=== PATIENT | male | born 1980 | race Caucasian/White ===

== ENCOUNTER 2018-08-29 13:03 | Emergency (ER) | payer OTHER, SELFPAY ==
--- NOTE | 2018-08-29 13:53 | ER ---
Nurse's Notes [facility] Name: Adonis Mcnally Jr Age: 38 yrs Sex: Male : 1980 Arrival Date: 08/29/2018 Time: 13:05 Bed 23 Private MD: Diagnosis: Dental caries;Dental root caries-extensive;Cutaneous abscess of head [any part, except face]-odontogenic abscess Presentation: 08/29 13:08 Presenting complaint: Patient states: Left upper tooth pain started yesterday and jl7 swelling happened over night. Transition of care: patient was not received from another setting of care. Onset of symptoms was August 28, 2018. Risk Assessment: Do you want to hurt yourself or someone else? Patient reports no desire to harm self or others. Initial Sepsis Screen: Does the patient meet any 2 criteria? No. Patient's initial sepsis screen is negative. Does the patient have a suspected source of infection? No. Patient's initial sepsis screen is negative. Care prior to arrival: None. 13:08 Method Of Arrival: Ambulatory [facility] 13:08 Acuity: JU 3 jl7 Triage Assessment: 13:11 General: Appears uncomfortable, ill, Behavior is calm, cooperative, appropriate for jl7 age. Pain: Complains of pain in gums and upper left lateral incisor Pain currently is 8 out of 10 on a pain scale. EENT: Reports pain in gums and upper left lateral incisor. Historical: - Allergies: 13:10 No Known Allergies; jl7 - Home Meds: 13:10 None [Active]; jl7 - PMHx: 13:10 None; jl7 - PSHx: 13:10 None; jl7 - Immunization history:: Adult Immunizations not up to date. - Social history:: Smoking status: Patient/guardian denies using tobacco. - Ebola Screening: : No symptoms or risks identified at this time. - Family history:: not pertinent. Screenin:20 Abuse screen: Denies threats or abuse. Denies injuries from another. Nutritional ed1 screening: No deficits noted. Tuberculosis screening: No symptoms or risk factors identified. Fall Risk None identified. Assessment: 13:20 General: Appears uncomfortable, Behavior is calm, cooperative. Pain: Complains of pain ed1 in face Pain radiates to chest and neck Pain currently is 8 out of 10 on a pain scale. Quality of pain is described as sharp, throbbing, Pain began 2-3 days ago. Is continuous, Current management is with Tylenol, Advil, is partially effective. Neuro: Level of Consciousness is awake, alert, obeys commands, Oriented to person, place, time, situation. Cardiovascular: Denies chest pain, Heart tones S1 S2 present. Respiratory: Airway is patent Respiratory effort is even, unlabored, Respiratory pattern is regular, symmetrical, Breath sounds are clear bilaterally. GI: Reports nausea, Patient currently denies diarrhea, vomiting. : No signs and/or symptoms were reported regarding the genitourinary system. EENT: Oral mucosa is moist. Poor dentition noted. Derm: Skin is pink, warm \T\ dry. Musculoskeletal: Circulation, motion, and sensation intact. Capillary refill < 3 seconds, in bilateral fingers. Swelling present in left cheek and left jaw. 13:29 Reassessment: I agree with previous assessment. hb 14:38 Reassessment: Patient appears in no apparent distress at this time. Patient and/or ed1 family updated on plan of care and expected duration. Pain level reassessed. Patient is alert, oriented x 3, equal unlabored respirations, skin warm/dry/pink. Report called to HEAVEN Zuñiga at [facility] ER, triage. Patient states feeling better. Patient states symptoms have improved. 16:03 Reassessment: Patient appears in no apparent distress at this time. Patient and/or ed1 family updated on plan of care and expected duration. Pain level reassessed. Patient is alert, oriented x 3, equal unlabored respirations, skin warm/dry/pink. Patient states feeling better. Patient states symptoms have improved. Vital Signs: 13:10 BP 148 / 96; Pulse 66; Resp 16 S; Temp 97.7(O); Pulse Ox 99% on R/A; Weight 120.2 kg jl7 (R); Height 5 ft. 8 in. (172.72 cm) (R); Pain 8/10; 14:39 BP 124 / 97; Pulse 61; Resp 20; Pulse Ox 96% on R/A; Pain 5/10; ed1 16:03 BP 126 / 84; Pulse 73; Resp 17; Temp 98.9(O); Pulse Ox 99% on R/A; Pain 4/10; ed1 13:10 Body Mass Index 40.29 (120.20 kg, 172.72 cm) jl7 ED Course: 13:05 Patient arrived in ED. rg4 13:10 Triage completed. jl7 13:10 Arm band placed on right wrist. jl7 13:20 Patient has correct armband on for positive identification. Placed in gown. Bed in low ed1 position. Call light in reach. Pulse ox on. NIBP on. 13:24 Addy Wiggins MD is Attending Physician. [facility] 13:30 Ruba Zhang LVN is Primary Nurse. ed1 14:07 Initial lab(s) drawn, by ED staff, sent to lab. Inserted saline lock: 20 gauge in left ed1 antecubital area, using aseptic technique. Blood collected. 14:[address] Scan. ed1 16:03 No provider procedures requiring assistance completed. Patient transferred, IV remains ed1 in place. intact, No redness/swelling at site. Administered Medications: 14:03 Drug: NS 0.9% 1000 ml Route: IV; Rate: 1 bolus; Site: left antecubital; ed1 16:02 Follow up: IV Status: Completed infusion; IV Intake: 1000ml ed1 14:03 Drug: Clindamycin 900 mg Route: IVPB; Infused Over: 30 mins; Site: left antecubital; ed1 14:31 Follow up: Response: No adverse reaction; IV Status: Completed infusion; IV Intake: [id number] 14:05 Drug: TORadol 30 mg Route: IVP; Site: left antecubital; iw 15:06 Follow up: Response: No adverse reaction; Pain is decreased ed1 14:05 Drug: morphine 4 mg Route: IVP; Site: left antecubital; iw 15:06 Follow up: Response: No adverse reaction; Pain is decreased ed1 14:05 Drug: Zofran 4 mg Route: IVP; Site: left antecubital; iw 15:06 Follow up: Response: No adverse reaction ed1 15:06 Drug: Rocephin - (cefTRIAXone) 1 grams Route: IVPB; Infused Over: 30 mins; Site: left ed1 antecubital; 16:02 Follow up: Response: No adverse reaction; IV Status: Completed infusion ed1 15:06 Drug: NS 0.9% with KCl 20 mEq/L 1000 ml Route: IV; Rate: 125 ml/hr; Site: left ed1 antecubital; 16:02 Follow up: IV Status: Infusion continued upon transfer ed1 Intake: 14:31 IV: 50ml; Total: 50ml. ed1 16:02 IV: 1000ml; Total: 1050ml. ed1 Outcome: 13:53 ER care complete, transfer ordered by . nirmala 16:03 Transferred by ground EMS to other acute care facility, Transfer form completed. X-rays ed1 sent w/ patient. Note: Report called to HEAVEN Zuñiga at [facility], triage 16:03 Condition: stable 16:03 Discharge instructions given to patient, Instructed on the need for transfer, Demonstrated understanding of instructions. 16:06 Patient left the ED. ed1 Signatures: Addy Wiggins MD MD cha Williams, Irene RN Ruba Rock, TRAVEL ACCOMMODATION INSPECTOR TRAVEL ACCOMMODATION INSPECTOR ed1 Es Blackwell, RN Adri Fish rg4 Melanie Mendieta RN RN jl7
--- NOTE | 2018-08-29 13:54 | EDPHYS ---
Physician Documentation [facility] Name: Adonis Mcnally Jr Age: 38 yrs Sex: Male : 1980 Arrival Date: 08/29/2018 Time: 13:05 Bed 23 Private MD: ED Physician Addy Wiggins HPI: 08/29 13:47 This 38 yrs old Male presents to ER via Ambulatory with complaints of nirmala Toothache, Facial Swelling. 13:47 The patient presents with pain, redness, swelling. The problem is located in the left nirmala cheek and mouth. Onset: The symptoms/episode began/occurred 5 day(s) ago. Duration: The symptoms are continuous, and are steadily getting worse. Modifying factors: The symptoms are alleviated by nothing, the symptoms are aggravated by chewing, food. Associated signs and symptoms: The patient has no apparent associated signs or symptoms. Severity of symptoms: At their worst the symptoms were moderate, in the emergency department the symptoms are unchanged. The patient has not experienced similar symptoms in the past. Historical: - Allergies: 13:10 No Known Allergies; jl7 - Home Meds: 13:10 None [Active]; jl7 - PMHx: 13:10 None; jl7 - PSHx: 13:10 None; jl7 - Immunization history:: Adult Immunizations not up to date. - Social history:: Smoking status: Patient/guardian denies using tobacco. - Ebola Screening: : No symptoms or risks identified at this time. - Family history:: not pertinent. ROS: 13:47 Constitutional: Negative for fever, chills, and weight loss, Eyes: Negative for injury, nirmala pain, redness, and discharge, Neck: Negative for injury, pain, and swelling, Cardiovascular: Negative for chest pain, palpitations, and edema, Respiratory: Negative for shortness of breath, cough, wheezing, and pleuritic chest pain, Abdomen/GI: Negative for abdominal pain, nausea, vomiting, diarrhea, and constipation, Back: Negative for injury and pain, : Negative for injury, bleeding, discharge, and swelling, MS/Extremity: Negative for injury and deformity, Skin: Negative for injury, rash, and discoloration, Neuro: Negative for headache, weakness, numbness, tingling, and seizure. 13:47 ENT: Positive for dental pain, of the left cheek and mouth. Exam: 13:47 Constitutional: This is a well developed, well nourished patient who is awake, alert, nirmala and in no acute distress. Eyes: Pupils equal round and reactive to light, extra-ocular motions intact. Lids and lashes normal. Conjunctiva and sclera are non-icteric and not injected. Cornea within normal limits. Periorbital areas with no swelling, redness, or edema. Neck: Trachea midline, no thyromegaly or masses palpated, and no cervical lymphadenopathy. Supple, full range of motion without nuchal rigidity, or vertebral point tenderness. No Meningismus. Chest/axilla: Normal chest wall appearance and motion. Nontender with no deformity. No lesions are appreciated. Cardiovascular: Regular rate and rhythm with a normal S1 and S2. No gallops, murmurs, or rubs. Normal PMI, no JVD. No pulse deficits. Respiratory: Lungs have equal breath sounds bilaterally, clear to auscultation and percussion. No rales, rhonchi or wheezes noted. No increased work of breathing, no retractions or nasal flaring. Abdomen/GI: Soft, non-tender, with normal bowel sounds. No distension or tympany. No guarding or rebound. No evidence of tenderness throughout. Back: No spinal tenderness. No costovertebral tenderness. Full range of motion. Male : Normal genitalia with no discharge or lesions. Skin: Warm, dry with normal turgor. Normal color with no rashes, no lesions, and no evidence of cellulitis. 13:47 Head/face: Noted is erythema, swelling, tenderness, that is moderate, of the left cheek and mouth. Vital Signs: 13:10 BP 148 / 96; Pulse 66; Resp 16 S; Temp 97.7(O); Pulse Ox 99% on R/A; Weight 120.2 kg jl7 (R); Height 5 ft. 8 in. (172.72 cm) (R); Pain 8/10; 14:39 BP 124 / 97; Pulse 61; Resp 20; Pulse Ox 96% on R/A; Pain 5/10; ed1 16:03 BP 126 / 84; Pulse 73; Resp 17; Temp 98.9(O); Pulse Ox 99% on R/A; Pain 4/10; ed1 13:10 Body Mass Index 40.29 (120.20 kg, 172.72 cm) jl7 MDM: 13:24 Patient medically screened. [facility] 13:50 Data reviewed: vital signs, nurses notes, lab test result(s), radiologic studies. [facility] 08/29 13:47 Order name: CBC with Diff [facility] 08/29 13:47 Order name: Comprehensive Metabolic Panel [facility] 08/29 13:47 Order name: CT Facial Bones W/ Con \T\ Mpr [facility] 08/29 14:20 Order name: CBC with Automated Diff; Complete Time: 14:52 EDMS 08/29 14:22 Order name: Comprehensive Metabolic Panel; Complete Time: 14:52 EDMS 08/29 14:36 Order name: CBC Smear Scan; Complete Time: 14:52 EDMS 08/29 15:07 Order name: CT EDMS Administered Medications: 14:03 Drug: NS 0.9% 1000 ml Route: IV; Rate: 1 bolus; Site: left antecubital; ed1 16:02 Follow up: IV Status: Completed infusion; IV Intake: 1000ml ed1 14:03 Drug: Clindamycin 900 mg Route: IVPB; Infused Over: 30 mins; Site: left antecubital; ed1 14:31 Follow up: Response: No adverse reaction; IV Status: Completed infusion; IV Intake: [id number] 14:05 Drug: TORadol 30 mg Route: IVP; Site: left antecubital; iw 15:06 Follow up: Response: No adverse reaction; Pain is decreased ed1 14:05 Drug: morphine 4 mg Route: IVP; Site: left antecubital; iw 15:06 Follow up: Response: No adverse reaction; Pain is decreased ed1 14:05 Drug: Zofran 4 mg Route: IVP; Site: left antecubital; iw 15:06 Follow up: Response: No adverse reaction ed1 15:06 Drug: Rocephin - (cefTRIAXone) 1 grams Route: IVPB; Infused Over: 30 mins; Site: left ed1 antecubital; 16:02 Follow up: Response: No adverse reaction; IV Status: Completed infusion ed1 15:06 Drug: NS 0.9% with KCl 20 mEq/L 1000 ml Route: IV; Rate: 125 ml/hr; Site: left ed1 antecubital; 16:02 Follow up: IV Status: Infusion continued upon transfer ed1 Disposition: 08/29/18 13:53 Transfer ordered to [facility]. Diagnosis are Dental caries, Dental root caries - extensive, Cutaneous abscess of head [any part, except face] - odontogenic abscess. - Reason for transfer: Higher level of care. - Accepting physician is to [facility]. - Condition is Fair. - Problem is new. - Symptoms have improved. Signatures: Dispatcher [employer] EDMS Addy Wiggins MD MD cha Williams, Irene, RN RN Ruba Millard LVN CLAY ROASTER ed1 Melanie Mendieta RN RN jl7 Corrections: (The following items were deleted from the chart) 16:06 13:53 08/29/2018 13:53 Transfer ordered to [facility]. Diagnosis is Dental ed1 caries; Dental root caries - extensive; Cutaneous abscess of head [any part, except face] - odontogenic abscess. Reason for transfer: Higher level of care. Accepting physician is to [facility]. Condition is Fair. Problem is new. Symptoms have improved. nirmala
[2018-08-29] MEDS ORDERED: CLINDAMYCIN 900MG/D5W 900 MG/50 ML IVPB IV ONE (13:59)
[2018-08-29] MEDS ORDERED: MORPHINE 4 MG/ML SYR ONE (13:59)
[2018-08-29] MEDS ORDERED: KETOROLAC 30 MG/ML INJ ONE (13:59)
[2018-08-29] MEDS ORDERED: ONDANSETRON 4 MG/2 ML VIAL ONE (13:59)
[2018-08-29] MEDS ORDERED: NA CHLORIDE 0.9% 1,000 ML ONE (13:59)
[2018-08-29 14:09] LABS: Absolute Lymphocytes (CBC) 1.3 K/uL (0.7-4.9); Absolute Monocytes 2.2 K/uL (0.1-1.3); Absolute Neutrophil 17.3 K/uL (1.8-8.0); Basophils % 0.3 % (0-1.3); Eosinophils % 0.1 % (0-4.4); Hematocrit 45.8 % (39.6-49.0); Lymphocytes % 6.3 % (15.3-44.8); MCH 31.4 pg (27.0-35.0); MCV 91.1 fL (80-100); MPV 9.8 fL (7.6-11.3); Monocytes % 10.6 % (3.3-12.3); RBC Red Blood Cell Count 5.02 M/uL (4.33-5.43)
[2018-08-29 14:21] LABS: Albumin 4.1 g/dL (3.4-5.0); Potassium 3.4 mmol/L (3.5-5.1); Protein, Total 8.1 g/dL (6.4-8.2)
[2018-08-29 14:36] LABS: Blood Morphology Comment NOT SEEN (NOT SEEN); Platelet Estimate ADEQ; Platelets, Giant NOTED; Urine White Blood Cell Casts OK
--- NOTE | 2018-08-29 15:06 | RAD REPORT ---
EXAM DESCRIPTION: CTFacial Bones W Con Mpr08/29/2018 2:51 pm CLINICAL HISTORY: Facial pain/fever COMPARISON: 2010 TECHNIQUE: Computed axial tomography of the sinuses were obtained with coronal and sagittal reconstr uction. All CT scans are performed using dose optimization technique as appropriate and may include automated exposure control or mA/KV adjustment according to patient size. FINDINGS: A large lucency is present within a central left maxillary tooth eroding the maxillary bon e. A 2.3 centimeter fluid collection is present within this region extending into the adjacent soft t issue compatible with an abscess. An 11 millimeter right. Maxillary tooth abscess is present. Fluid within the sinuses is not noted. The globes are intact. IMPRESSION: A 23 millimeter left maxillary dana tooth abscess eroding the left maxillary bone extend ing into the adjacent soft tissues
[2018-08-29] MEDS ORDERED: NS KCL 20MEQ 1,000 ML IV ONE (15:07)
[2018-08-29] MEDS ORDERED: CEFTRIAXONE/SWI 1gm 1 GM/10 ML SYR ONE (15:07)
== END 2018-08-29 16:06 | disposition short-term general hospital (02) ==
LOC: ER 13:03
DX: K04.7 Periapical abscess without sinus (principal); K02.7 Dental root caries; K02.9 Dental caries, unspecified
CPT/HCPCS: 36415; 70487; 76377; 80053; 85025; 96361; 96365; 96367; 96375; 99285; J0696; J2405; J7030; Q9967

== ENCOUNTER 2021-05-22 20:17 | Emergency (ER) | payer SELFPAY ==
--- OUTSIDE RECORDS SUMMARY | 2021-05-22 20:21 | XMS REPORT | Continuity of Care Document ---
:[address] [facility] t Address [address] [place] [address] Care Team Providers Name Role Phone Unavailable Unavailable Unavailable Problems Condition Condition Condition Status Onset Resolution Last Treating Co mments Source Name Details Category Date Date Treatment Clinician Date Dental Dental Disease Active 2017-10 [place] abscess abscess 10-29 Health 00:00: 00 Caries Caries Disease Active [place] involving involving [facility] multiple multiple surfaces surfaces of tooth of tooth Allergies, Adverse Reactions, Alerts This patient has no known allergies or adverse reactions. Social History Social Habit Start Date Stop Date Quantity Comments Source Sex Assigned At [facility] Tobacco use and 2018-08-29 2018-08-29 Never used [facility] exposure 00:00:00 00:00:00 Alcohol intake 2018-08-29 2018-08-29 Current drinker [facility] 00:00:00 00:00:00 of alcohol (finding) Smoking Status Start Date Stop Date Source Never smoker [facility] Medications Ordered Filled Start Stop Current Ordering Indication Dosage Frequency Signature Comments Components Source Medication Medication Date Date Medication? Clinician (SIG) Name Name acetaminoph 2017-10 Yes Dental 1{tbl} Take 1 [place] en-codeine 1-20 abscess tablet by [facility] (TYLENOL/CO 00:00: mouth DEINE #3) 00 every 4 300-30 mg hours as per tablet needed for Pain. Procedures This patient has no known procedures. Plan of Care Planned Activity Planned Date Details Comments Source Future Scheduled Test 2021-07-10 00:00:00 IMM Influenza [facility] Seasonal Jul to December (>/= 19 yrs) [code = IMM Influenza Seasonal Jul to December (>/= 19 yrs)] Future Scheduled Test 1993 00:00:00 COVID-19 Vaccine (1) [facility] [code = COVID-19 Vaccine (1)] Encounters Start End Encounter Admission Attending Care Care Encounter Source Date/Time Date/Time Type Type Clinicians Facility Department ID 2018-08-29 2018-08-29 Emergency [facility] [id number] [place] 21:24:33 21:24:33 Health 2018-08-29 2018-08-29 Emergency [facility] [id number] [place] 18:17:36 18:17:36 Health 2018-08-29 2018-08-29 Emergency [facility] [id number] [address] [place] [address] 17:14:31 17:14:31 Health Results This patient has no known results.
--- NOTE | 2021-05-23 01:39 | EDPHYS ---
Physician Documentation [facility] Name: Adonis Mcnally Jr Age: 41 yrs Sex: Male : 1980 Arrival Date: 05/22/2021 Time: 20:41 Bed DIS2 Private MD: ED Physician Ambrosio Rodriges HPI: 05/23 01:15 This 41 yrs old Male presents to ER via Ambulatory with complaints of Fever, cp Sinus Congestion, Cough, Runny Nose. 01:15 The patient or guardian reports cough, that is intermittent, nasal congestion, nasal cp drainage. Onset: The symptoms/episode began/occurred 3 day(s) ago. Associated signs and symptoms: Pertinent positives: fever, Pertinent negatives: diarrhea, ear ache, sore throat, vomiting. Patient reports recently tested positive for COVID-19. Historical: - Allergies: 05/22 21:52 No Known Allergies; em - PMHx: 21:52 Hypertensive disorder; "heart problems"; em - PSHx: 21:52 None; em - Immunization history:: Adult Immunizations up to date. - Social history:: Smoking status: Patient reports the use of cigarette tobacco products, smokes two packs cigarettes per day. ROS: 05/23 01:20 Constitutional: Negative for body aches, chills, fever, poor PO intake. cp 01:20 Eyes: Negative for injury, pain, redness, and discharge. cp 01:20 ENT: Positive for rhinorrhea, sinus congestion, Negative for drainage from ear(s), ear pain, sore throat, difficulty swallowing, difficulty handling secretions. 01:20 Neck: Negative for pain with movement, pain at rest, stiffness. 01:20 Cardiovascular: Negative for chest pain. 01:20 Respiratory: Positive for cough, with no reported sputum, Negative for shortness of breath, wheezing. 01:20 Skin: Negative for rash. 01:20 Neuro: Negative for altered mental status, headache, weakness. 01:20 All other systems are negative. Exam: 01:25 Constitutional: The patient appears in no acute distress, alert, awake, non-toxic, well cp developed, well nourished. 01:25 Head/Face: Normocephalic, atraumatic. cp 01:25 Eyes: Periorbital structures: appear normal, Conjunctiva: normal, no exudate, no injection, Sclera: no appreciated abnormality, Lids and lashes: appear normal, bilaterally. 01:25 ENT: External ear(s): are unremarkable, Ear canal(s): are normal, clear, TM's: dullness, bilaterally, Nose: is normal, Mouth: Lips: moist, Oral mucosa: pink and intact, moist, Posterior pharynx: Airway: no evidence of obstruction, patent, Tonsils: are normal in appearance, swelling, is not appreciated, erythema, that is mild, exudate, is not appreciated. 01:25 Neck: ROM/movement: Meningeal signs: are not present, nuchal rigidity, is not appreciated, Lymph nodes: no appreciated lymphadenopathy. 01:25 Chest/axilla: Inspection: normal. 01:25 Cardiovascular: Rate: normal, Rhythm: regular. 01:25 Respiratory: the patient does not display signs of respiratory distress, Respirations: normal, no use of accessory muscles, no retractions, labored breathing, is not present, Breath sounds: are clear throughout, no decreased breath sounds, no stridor, no wheezing. Vital Signs: 05/22 21:52 BP 133 / 99; Pulse 89; Resp 20; Temp 98.7; Pulse Ox 99% on R/A; em 05/23 01:57 BP 137 / 85; Pulse 54; Resp 16 S; Temp 98(O); Pulse Ox 98% on R/A; bb MDM: 01:37 Patient medically screened. cp 01:38 Differential Diagnosis: Bronchitis Influenza Sinusitis Pharyngitis Viral Syndrome cp Pneumonia Other COVID-19. 01:38 Data reviewed: vital signs, nurses notes, lab test result(s). Counseling: I had a cp detailed discussion with the patient and/or guardian regarding: the historical points, exam findings, and any diagnostic results supporting the discharge/admit diagnosis, lab results, to return to the emergency department if symptoms worsen or persist or if there are any questions or concerns that arise at home. ED course: VSS. Discussed negative COVID-19 results. Patient appears stable and non-toxic, will discharge to home for continued monitoring and to quarantine with . 05/22 21:58 Order name: COVID-19 : Document "Date of Symptom Onset" if Symptomatic. em 05/22 22:56 Order name: SARS-COV-2 RT PCR; Complete Time: 01:38 EDMS Administered Medications: No medications were administered Disposition Summary: 05/23/21 01:38 Discharge Ordered Location: Home cp Problem: new cp Symptoms: are unchanged cp Condition: Stable cp Diagnosis - Acute upper respiratory infection, unspecified cp Followup: cp - With: Private Physician - When: 2 - 3 days - Reason: Worsening of condition Discharge Instructions: - Discharge Summary Sheet cp - Upper Respiratory Infection, Adult cp - COVID-19: What Your Test Results Mean - [facility] cp - Frequently Asked Questions About COVID-19 Vaccination - [facility] cp - Viral Respiratory Infection cp - Form - Excuse from Work, School, or Physical Activity cp - COVID-19: Quarantine vs. Isolation - [facility] cp Forms: - Medication Reconciliation Form cp - Thank You Letter cp - Antibiotic Education cp - Prescription Opioid Use cp Prescriptions: - Tessalon Perles 100 mg Oral Capsule - take 2 capsule by ORAL route every 8 hours As needed; 20 capsule; Refills: 0, cp Product Selection Permitted Addendum: 05/24/2021 06:46 Co-signature as Attending Physician, Ambrosio Rodriges MD. m Signatures: Dispatcher [employer] EDMS Clark Link RN RN Addy Ashby PA PA cp Ambrosio Rodriges MD MD [email or web address] Corrections: (The following items were deleted from the chart) 05/22 22:05 21:58 CORONAVIRUS ordered. EDGA EDMS
--- NOTE | 2021-05-23 01:39 | ER ---
Nurse's Notes [facility] Name: Adonis Mcnally Jr Age: 41 yrs Sex: Male : 1980 Arrival Date: 05/22/2021 Time: 20:41 Bed DIS2 Private MD: Diagnosis: Acute upper respiratory infection, unspecified Presentation: 05/22 21:52 Onset of symptoms was May 19, 2021. em 21:53 Chief complaint: Patient states: runny nose, congestion, fever for 3 days, tested em positive for covid. Coronavirus screen: congestion, fever, Client presents with at least one sign or symptom that may indicate coronavirus-19. Standard/surgical mask placed on the client. Provider contacted for isolation considerations. Ebola Screen: Patient negative for fever greater than or equal to 101.5 degrees Fahrenheit, and additional compatible Ebola Virus Disease symptoms Patient denies exposure to infectious person. Patient denies travel to an Ebola-affected area in the 21 days before illness onset. No symptoms or risks identified at this time. Initial Sepsis Screen: Does the patient meet any 2 criteria? No. Patient's initial sepsis screen is negative. Does the patient have a suspected source of infection? No. Patient's initial sepsis screen is negative. Risk Assessment: Do you want to hurt yourself or someone else? Patient reports no desire to harm self or others. 21:53 Method Of Arrival: Ambulatory em 21:53 Acuity: JU 4 em Triage Assessment: 21:51 General: Appears in no apparent distress. comfortable, Behavior is calm, cooperative, em appropriate for age, Denies fever. Pain: Denies pain. Neuro: Level of Consciousness is awake, alert, obeys commands, Oriented to person, place, time, situation. Cardiovascular: Capillary refill < 3 seconds Patient's skin is warm and dry. Respiratory: Airway is patent Respiratory effort is even, unlabored, Respiratory pattern is regular, symmetrical. Derm: Skin is intact, is healthy with good turgor, Skin is pink, warm \\T\\ dry. Musculoskeletal: Capillary refill < 3 seconds, Range of motion: intact in all extremities. Historical: - Allergies: 21:52 No Known Allergies; em - PMHx: 21:52 Hypertensive disorder; "heart problems"; em - PSHx: 21:52 None; em - Immunization history:: Adult Immunizations up to date. - Social history:: Smoking status: Patient reports the use of cigarette tobacco products, smokes two packs cigarettes per day. Screenin:51 Abuse screen: Denies threats or abuse. Nutritional screening: No deficits noted. em Tuberculosis screening: No symptoms or risk factors identified. Fall Risk None identified. Assessment: 21:52 Reassessment: see triage note. em Vital Signs: 21:52 BP 133 / 99; Pulse 89; Resp 20; Temp 98.7; Pulse Ox 99% on R/A; em 05/23 01:57 BP 137 / 85; Pulse 54; Resp 16 S; Temp 98(O); Pulse Ox 98% on R/A; bb ED Course: 05/22 20:41 Patient arrived in ED. cf2 21:51 Patient has correct armband on for positive identification. em 21:51 Arm band placed on. em 21:51 No provider procedures requiring assistance completed. Patient admitted, IV remains in em place. 21:54 Triage completed. em 05/23 01:32 Addy Perez PA is PHCP. cp 01:32 Ambrosio Rodriges MD is Attending Physician. cp Administered Medications: No medications were administered Outcome: 01:38 Discharge ordered by MD. cp 01:58 Discharged to home ambulatory. bb 01:58 Condition: stable 01:58 Discharge instructions given to patient, Instructed on discharge instructions, follow up and referral plans. medication usage, Demonstrated understanding of instructions, follow-up care, medications, Prescriptions given X 1. 01:58 Patient left the ED. bb Signatures: Clark Link RN RN Andree Hernandez RN RN bb Addy Perez PA PA cp Frazier, Celesta cf2
[2021-05-23 02:25] VITALS: BP 137/85; TEMP 98; O2SAT 98
== END 2021-05-23 01:58 | disposition home or self-care (01) ==
LOC: ER 20:17
DX: J06.9 Acute upper respiratory infection, unspecified (principal); Z20.822 Contact with and (suspected) exposure to COVID-19; F17.210 Nicotine dependence, cigarettes, uncomplicated; I10 Essential (primary) hypertension
CPT/HCPCS: 99282; U0003

== ENCOUNTER 2021-12-01 07:43 | Emergency (ER) | payer SELFPAY ==
[2021-12-01 08:19] LABS: Urine Blood Negative (Negative); Urine Glucose Negative (Negative); Urine Protein 1+ (Negative); Urine Specific Gravity >=1.030 (1.005-1.030); Urine pH 5.5 (5.0-7.0)
[2021-12-01 08:32] LABS: Absolute Lymphocytes (CBC) 1.6 K/uL (0.7-4.9); Hematocrit 46.5 % (39.6-49.0); Lymphocytes % 16.6 % (15.3-44.8); RBC Red Blood Cell Count 5.14 M/uL (4.33-5.43)
[2021-12-01 08:41] LABS: Urine Bacteria 20-50 /HPF (NONE SEEN); Urine Mucus 2+ /HPF (NONE SEEN); Urine RBC NONE SEEN /HPF (NONE SEEN)
--- NOTE | 2021-12-01 08:47 | RAD REPORT ---
EXAM DESCRIPTION: CT - Stone Protocol - 12/01/2021 8:32 am CLINICAL HISTORY: Flank pain. FLANK PAIN COMPARISON: No comparisons TECHNIQUE: Axial images were obtained without oral or IV contrast. Lack of contrast limits solid org an and vascular assessment. The [id number] spans the entirety of the system partially obscuring uppermost abdomen and lung bases. Coronal reformatted images were obtained and reviewed. All CT scans are performed using dose optimization technique as appropriate and may include automated exposure control or mA/KV adjustment according to patient size. FINDINGS: The lower lung willoughby are clear. Imaged portions of the liver and spleen show no suspicious findings on non-contrast imaging. The panc reas and adrenal glands are normal. No pathologic lymphadenopathy in the abdomen or pelvis. Punctate calculi are seen in both kidneys without hydronephrosis. No bowel obstruction, free air, free fluid or abscess. Normal appendix noted. Mild posterior disc bulging lower lumbar spine. IMPRESSION: Punctate calculi in both kidneys without hydronephrosis.
[2021-12-01 08:50] LABS: Albumin 3.7 g/dL (3.4-5.0); Bilirubin Direct 0.2 mg/dL (0-0.2); Bilirubin Total 0.6 mg/dL (0.2-1.0); Potassium 3.7 mmol/L (3.5-5.1); Protein, Total 7.3 g/dL (6.4-8.2)
--- NOTE | 2021-12-01 09:25 | EDPHYS ---
Physician Documentation [facility] Name: Adonis Mcnally Jr Age: 41 yrs Sex: Male : 1980 Arrival Date: 12/01/2021 Time: 07:44 Bed 12 Private MD: ED Physician Bong Coello HPI: 12/01 08:06 This 41 yrs old Male presents to ER via Ambulatory with complaints of Constipation, kb Back Pain. 08:06 The patient complains of pain in the right flank. The pain does not radiate. Onset: The kb symptoms/episode began/occurred 4 day(s) ago. Modifying factors: The symptoms are alleviated by nothing. the symptoms are aggravated by nothing. Associated signs and symptoms: The patient has no apparent associated signs or symptoms. Severity of pain: At its worst the pain was moderate in the emergency department the pain is unchanged. The patient has not experienced similar symptoms in the past. The patient has not recently seen a physician. Pt reports right flank pain since Tuesday that has been getting progressively worse. Reports constipation as well. Historical: - Allergies: 07:53 No Known Allergies; ap3 - Home Meds: 07:53 None [Active]; ap3 - PMHx: 07:53 Hypertensive disorder; "heart problems"; ap3 - Immunization history:: Client reports having NOT received the Covid vaccine. Flu vaccine is not up to date. - Social history:: Smoking status: Patient reports the use of cigarette tobacco products, smokes one pack cigarettes per day. Patient uses street drugs, marijuana. ROS: 08:06 Constitutional: Negative for fever, chills, and weight loss. kb 08:06 Back: Positive for flank pain, on the right. 08:06 All other systems are negative. 08:06 Abdomen/GI: Positive for constipation. kb Exam: 08:05 Constitutional: This is a well developed, well nourished patient who is awake, alert, kb and in no acute distress. Head/Face: Normocephalic, atraumatic. ENT: Moist Mucous membranes Cardiovascular: Regular rate and rhythm with a normal S1 and S2. No gallops, murmurs, or rubs. No pulse deficits. Respiratory: Respirations even and unlabored. No increased work of breathing. Talking in full sentences Abdomen/GI: Soft, non-tender. No distention Skin: Warm, dry with normal turgor. Normal color. MS/ Extremity: Pulses equal, no cyanosis. Neurovascular intact. Full, normal range of motion. Neuro: Awake and alert, GCS 15, oriented to person, place, time, and situation. Moves all extremities. Normal gait. Psych: Awake, alert, with orientation to person, place and time. Behavior, mood, and affect are within normal limits. 08:05 Back: CVA tenderness, that is moderate, is noted on the right. Vital Signs: 07:51 BP 119 / 79; Pulse 102; Resp 17; Temp 98.4; Pulse Ox 100% ; Weight 92.08 kg; Height 5 ap3 ft. 8 in. (172.72 cm); Pain 8/10; 08:46 BP 117 / 65; Pulse 68; Resp 15; Pulse Ox 98% ; Pain 8/10; eo2 09:37 BP 114 / 71; Pulse 70; Resp 15; Pulse Ox 96% ; Pain 4/10; eo2 07:51 Body Mass Index 30.87 (92.08 kg, 172.72 cm) ap3 MDM: 07:58 Patient medically screened. kb 08:05 Data reviewed: vital signs, nurses notes. Data interpreted: Pulse oximetry: on room air kb is 100 %. Interpretation: normal. 09:24 Counseling: I had a detailed discussion with the patient and/or guardian regarding: the kb historical points, exam findings, and any diagnostic results supporting the discharge/admit diagnosis, lab results, radiology results, the need for outpatient follow up, a family practitioner, to return to the emergency department if symptoms worsen or persist or if there are any questions or concerns that arise at home. 12/01 07:58 Order name: Basic Metabolic Panel; Complete Time: 08:55 kb 12/01 07:58 Order name: CBC with Diff; Complete Time: 08:47 kb 12/01 07:58 Order name: Hepatic Function; Complete Time: 08:55 kb 12/01 07:58 Order name: Lipase; Complete Time: 08:55 kb 12/01 08:14 Order name: Urine Microscopic Only; Complete Time: 08:47 kb 12/01 08:19 Order name: Urine Dipstick-Ancillary; Complete Time: 08:20 EDMS 12/01 07:58 Order name: IV Saline Lock; Complete Time: 08:22 kb 12/01 07:58 Order name: Labs collected and sent; Complete Time: 08:22 kb 12/01 08:04 Order name: CT Stone Protocol; Complete Time: 08:55 kb 12/01 08:14 Order name: Urine Dipstick-Ancillary (obtain specimen); Complete Time: 08:22 kb 12/01 08:43 Order name: Urine Culture EDMS Administered Medications: No medications were administered Disposition Summary: 12/01/21 09:25 Discharge Ordered Location: Home kb Condition: Stable kb Diagnosis - UTI/ Urinary tract infection, site not specified kb - Right flank pain kb Followup: kb - With: Emergency Department - When: As needed - Reason: Worsening of condition Followup: kb - With: Private Physician - When: 2 - 3 days - Reason: Recheck today's complaints, Continuance of care, Re-evaluation by your physician Discharge Instructions: - Discharge Summary Sheet kb - Urinary Tract Infection, Adult, [id number] kb - Flank Pain, Adult, [id number] kb Forms: - Medication Reconciliation Form kb - Thank You Letter kb - Antibiotic Education kb - Prescription Opioid Use kb Prescriptions: - Augmentin 875-125 mg Oral Tablet - take 1 tablet by ORAL route every 12 hours for 7 days; 14 tablet; Refills: 0, kb Product Selection Permitted Addendum: 12/03/2021 07:14 Co-signature as Attending Physician, Bong Coello MD I agree with the assessment and k dr plan of care. Signatures: Dispatcher [employer] EDMS Citlalli Mendoza, TALLOW PUMPER-C TALLOW PUMPER-CkBong Ordonez MD MD [facility] Gayathri Oropeza RN RN ap3 Corrections: (The following items were deleted from the chart) 12/01 08:11 07:59 Abdomen Pelvis W Con+CT.RAD.BRZ ordered. EDHI EDMS
--- NOTE | 2021-12-01 09:25 | ER ---
Nurse's Notes [facility] Name: Adonis Mcnally Jr Age: 41 yrs Sex: Male : 1980 Arrival Date: 12/01/2021 Time: 07:44 Bed 12 Private MD: Diagnosis: UTI/ Urinary tract infection, site not specified;Right flank pain Presentation: 12/01 07:51 Chief complaint: Patient states: he hasn't had a bowel movement since Tuesday morning, ap3 and he typically goes every morning. Patient reports associated right lower back and right side pain. Patient states he is passing gas, but not a lot. Coronavirus screen: At this time, the client does not indicate any symptoms associated with coronavirus-19. Ebola Screen: No symptoms or risks identified at this time. Initial Sepsis Screen: Does the patient meet any 2 criteria? No. Patient's initial sepsis screen is negative. Does the patient have a suspected source of infection? No. Patient's initial sepsis screen is negative. Risk Assessment: Do you want to hurt yourself or someone else? Patient reports no desire to harm self or others. Onset of symptoms was November 29, 2021. 07:51 Method Of Arrival: Ambulatory ap3 07:51 Acuity: JU 3 ap3 Triage Assessment: 07:55 General: Appears in no apparent distress. uncomfortable, Behavior is calm, cooperative. ap3 Pain: Complains of pain in low back area and right low back Pain currently is 8 out of 10 on a pain scale. at worst was 10 out of 10 on a pain scale. Neuro: Level of Consciousness is awake, alert, obeys commands, Oriented to person, place, time, situation, Appropriate for age Speech is normal. Cardiovascular: Patient's skin is warm and dry. Respiratory: Airway is patent Respiratory effort is even, unlabored, Respiratory pattern is regular, symmetrical. GI: Abdomen is round Last BM was November 29, 2021. Reports constipation. Historical: - Allergies: 07:53 No Known Allergies; ap3 - Home Meds: 07:53 None [Active]; ap3 - PMHx: 07:53 Hypertensive disorder; "heart problems"; ap3 - Immunization history:: Client reports having NOT received the Covid vaccine. Flu vaccine is not up to date. - Social history:: Smoking status: Patient reports the use of cigarette tobacco products, smokes one pack cigarettes per day. Patient uses street drugs, marijuana. Screenin:57 Abuse screen: Denies threats or abuse. Nutritional screening: No deficits noted. ap3 Tuberculosis screening: No symptoms or risk factors identified. 08:07 Fall Risk None identified. eo2 Assessment: 08:07 General: Appears in no apparent distress. comfortable, Behavior is calm, cooperative. eo2 Pain: Complains of pain in back and right low back and low back area. Neuro: Level of Consciousness is awake, alert, obeys commands, Oriented to person, place, time, situation, Denies dizziness, headache. Cardiovascular: Denies chest pain, shortness of breath, Capillary refill < 3 seconds. Respiratory: Airway is patent Trachea midline Respiratory effort is even, unlabored, Respiratory pattern is regular, symmetrical, Breath sounds are clear bilaterally. GI: Bowel sounds Abd is soft Abd is non tender Reports constipation, since Tuesday, reports one time episode of bloody stool on Tuesday, denies any rectal bleeding since, reports able to pass gas. : Denies burning with urination, inability to void. Musculoskeletal: Reports pain in right flank and back and right low back and low back area. Vital Signs: 07:51 BP 119 / 79; Pulse 102; Resp 17; Temp 98.4; Pulse Ox 100% ; Weight 92.08 kg; Height 5 ap3 ft. 8 in. (172.72 cm); Pain 8/10; 08:46 BP 117 / 65; Pulse 68; Resp 15; Pulse Ox 98% ; Pain 8/10; eo2 09:37 BP 114 / 71; Pulse 70; Resp 15; Pulse Ox 96% ; Pain 4/10; eo2 07:51 Body Mass Index 30.87 (92.08 kg, 172.72 cm) ap3 ED Course: 07:44 Patient arrived in ED. ds1 07:53 Triage completed. ap3 07:56 Citlalli Mendoza FNP-C is PHCP. kb 07:56 Bong Coello MD is Attending Physician. kb 07:56 Arm band placed on left wrist. ap3 08:00 Gretchen Wylie, HEAVEN is Primary Nurse. eo2 08:07 Patient has correct armband on for positive identification. Pulse ox on. NIBP on. Door eo2 closed. Noise minimized. 08:07 No provider procedures requiring assistance completed. eo2 08:20 Inserted saline lock: 20 gauge in right forearm, using aseptic technique. mb7 08:32 CT Stone Protocol In Process Unspecified. EDMS 09:37 IV discontinued, intact. eo2 Administered Medications: No medications were administered Outcome: 09:25 Discharge ordered by . bob 09:37 Discharged to home ambulatory. eo2 09:37 Condition: stable 09:37 Discharge instructions given to patient, Instructed on discharge instructions, follow up and referral plans. medication usage, Demonstrated understanding of instructions, follow-up care, medications, Prescriptions given X 1. 09:38 Patient left the ED. eo2 Signatures: Dispatcher [employer] EDMS Citlalli Mendoza, TOOTH CUTTER SPUR-C TOOTH CUTTER SPUR-Sadie Polanco ds1 Gayathri Oropeza, RN RN [email or web address] Jennifer Biswas mb7 Gretchen Wylie, HEAVEN RN eo2
[2021-12-01 09:45] VITALS: TEMP 98.4
[2021-12-01 09:47] VITALS: BP 114/71; O2SAT 96
== END 2021-12-01 09:38 | disposition home or self-care (01) ==
LOC: ER 07:43
DX: N39.0 Urinary tract infection, site not specified (principal); I10 Essential (primary) hypertension; F17.210 Nicotine dependence, cigarettes, uncomplicated
CPT/HCPCS: 36415; 74176; 76377; 80048; 80076; 81003; 81015; 83690; 85025; 87086; 87088; 99284

== ENCOUNTER 2022-05-26 11:49 | Emergency (ER) | payer SELFPAY ==
--- NOTE | 2022-05-26 14:42 | ER ---
Nurse's Notes [facility] Name: Adonis Mcnally Jr Age: 42 yrs Sex: Male : 1980 Arrival Date: 05/26/2022 Time: 11:51 Bed 10 Private MD: Diagnosis: Rash and other nonspecific skin eruption;Fever, unspecified;Myalgia Presentation: 05/26 11:56 Chief complaint: Patient states: rash started yesterday on face, head, and trunk. Fever iw x4 days with sore throat and cough. Pt endorses vomiting x2 days. MIL getting over shingles at this time, also recently moved his father out of his house that was infested with rates so pt is unsure of which might be causing the problem. Coronavirus screen: Vaccine status: Patient reports being unvaccinated. Client denies travel out of the [place] in the last 14 days. Ebola Screen: Patient negative for fever greater than or equal to 101.5 degrees Fahrenheit, and additional compatible Ebola Virus Disease symptoms Patient denies exposure to infectious person. Patient denies travel to an Ebola-affected area in the 21 days before illness onset. Initial Sepsis Screen: Does the patient meet any 2 criteria? No. Patient's initial sepsis screen is negative. Does the patient have a suspected source of infection? No. Patient's initial sepsis screen is negative. Risk Assessment: Do you want to hurt yourself or someone else? Patient reports no desire to harm self or others. Onset of symptoms was May 21, 2022. 11:56 Method Of Arrival: Ambulatory iw 11:56 Acuity: JU 3 iw Triage Assessment: 14:57 General: Appears in no apparent distress. unkempt, Behavior is calm, cooperative, jh5 appropriate for age. Pain: Denies pain. Historical: - Allergies: 12:00 No Known Allergies; iw - PMHx: 12:00 "heart problems"; Hypertensive disorder; iw - Immunization history:: Adult Immunizations up to date. - Social history:: Smoking status: Patient reports the use of cigarette tobacco products, smokes one-half pack cigarettes per day. Screenin:57 Abuse screen: Denies threats or abuse. Denies injuries from another. Nutritional jh5 screening: No deficits noted. Tuberculosis screening: No symptoms or risk factors identified. Fall Risk None identified. Vital Signs: 11:56 BP 128 / 64; Pulse 88; Resp 16; Temp 100.1(T); Pulse Ox 99% ; Weight 95.25 kg; Height 5 iw ft. 7 in. (170.18 cm); Pain 3/10; 11:56 Body Mass Index 32.89 (95.25 kg, 170.18 cm) iw ED Course: 11:51 Patient arrived in ED. mr 11:56 Donn Mendez DO is Attending Physician. ms3 12:00 Triage completed. iw 12:08 Eveline Murray, RN is Primary Nurse. iw 12:08 Arm band placed on. iw 14:57 Patient has correct armband on for positive identification. 5 14:57 No provider procedures requiring assistance completed. Patient did not have IV access jh5 during this emergency room visit. Administered Medications: No medications were administered Medication: 14:58 VIS not applicable for this client. 5 Outcome: 14:41 Discharge ordered by MD. ms3 14:58 Discharged to home ambulatory. 5 14:58 Condition: good 14:58 Discharge instructions given to patient. 14:58 Patient left the ED. 5 Signatures: Jennifer Haynes mr Eveline Murray, RN RN iw Donn Mendez DO DO ms3 Natalie Alonso, RN RN 5 Corrections: (The following items were deleted from the chart) 12:01 11:56 Chief complaint: Patient states: rash started yesterday on face, head, and trunk. iw Fever x4 days with sore throat and cough. Pt endorses vomiting x2 days iw
--- NOTE | 2022-05-26 14:42 | EDPHYS ---
Physician Documentation [facility] Name: Adonis Mcnally Jr Age: 42 yrs Sex: Male : 1980 Arrival Date: 05/26/2022 Time: 11:51 Bed 10 Private MD: ED Physician Donn Mendez HPI: 05/26 14:41 This 42 yrs old Male presents to ER via Ambulatory with complaints of Rash, Fever. ms3 14:41 The patient's rash thought to be caused by an unknown cause. The rash is located on the ms3 chest, abdomen, right leg, left leg, face and scalp. The rash can be described as papular. Onset: The symptoms/episode began/occurred 1 day(s) ago. Associated signs and symptoms: Pertinent positives: fever, Pertinent negatives: None. itching, nausea, Pain vomiting. Severity of symptoms: At their worst the symptoms were moderate in the emergency department the symptoms are unchanged Pain is currently a 0 / 10. Historical: - Allergies: 12:00 No Known Allergies; iw - PMHx: 12:00 "heart problems"; Hypertensive disorder; iw - Immunization history:: Adult Immunizations up to date. - Social history:: Smoking status: Patient reports the use of cigarette tobacco products, smokes one-half pack cigarettes per day. ROS: 14:41 Cardiovascular: Negative for chest pain, and palpitations. Respiratory: Negative for ms3 shortness of breath, cough, wheezing, and pleuritic chest pain, Abdomen/GI: Negative for abdominal pain, nausea, vomiting, diarrhea, and constipation, MS/Extremity: Negative for injury and deformity, Neuro: Negative for headache, weakness, numbness, tingling. 14:41 Constitutional: Positive for body aches, chills, fever, malaise. 14:41 Skin: Positive for rash. 14:41 All other systems are negative. Exam: 14:41 Constitutional: This is a well developed, well nourished patient who is awake, alert, ms3 and in no acute distress. Head/Face: Normocephalic, atraumatic. Neck: Trachea midline, no cervical lymphadenopathy. Supple, full range of motion without nuchal rigidity, or vertebral point tenderness. No Meningismus. Chest/axilla: Normal chest wall appearance and motion. Nontender with no deformity. Cardiovascular: Regular rate and rhythm with a normal S1 and S2. No gallops, murmurs, or rubs. Normal PMI, no JVD. No pulse deficits. Respiratory: Lungs have equal breath sounds bilaterally, clear to auscultation and percussion. No rales, rhonchi or wheezes noted. No increased work of breathing, no retractions or nasal flaring. Abdomen/GI: Soft, non-tender, with normal bowel sounds. No distension or tympany. No guarding or rebound. No evidence of tenderness throughout. MS/ Extremity: Pulses equal, no cyanosis. Neurovascular intact. Full, normal range of motion. 14:41 Skin: on the scalp and face and left leg and right leg and abdomen and chest. Vital Signs: 11:56 BP 128 / 64; Pulse 88; Resp 16; Temp 100.1(T); Pulse Ox 99% ; Weight 95.25 kg; Height 5 iw ft. 7 in. (170.18 cm); Pain 3/10; 11:56 Body Mass Index 32.89 (95.25 kg, 170.18 cm) iw MDM: 12:17 Patient medically screened. ms3 14:41 Data reviewed: vital signs, nurses notes, and as a result, I will discharge patient. ms3 Counseling: I had a detailed discussion with the patient and/or guardian regarding: the historical points, exam findings, and any diagnostic results supporting the discharge/admit diagnosis, the need for outpatient follow up, to return to the emergency department if symptoms worsen or persist or if there are any questions or concerns that arise at home. 05/26 12:37 Order name: [facility]. Lab Test ms3 Administered Medications: No medications were administered Disposition Summary: 05/26/22 14:41 Discharge Ordered Location: Home ms3 Condition: Stable ms3 Diagnosis - Rash and other nonspecific skin eruption ms3 - Fever, unspecified ms3 - Myalgia ms3 Followup: ms3 - With: Private Physician - When: 2 - 3 days - Reason: Recheck today's complaints Discharge Instructions: - Discharge Summary Sheet ms3 - Fever, Adult ms3 - Rash, Adult ms3 Forms: - Medication Reconciliation Form ms3 - Thank You Letter ms3 - Antibiotic Education ms3 - Prescription Opioid Use ms3 Signatures: Dispatcher [employer] EDMS Trevor, Eveline, RN RN iw Mendez, Donn, DO DO ms3
[2022-05-26 15:44] VITALS: BP 128/64; TEMP 100.1; O2SAT 99
== END 2022-05-26 14:58 | disposition home or self-care (01) ==
LOC: ER 11:49
DX: R21 Rash and other nonspecific skin eruption (principal); R50.9 Fever, unspecified; M79.10 Myalgia, unspecified site; I10 Essential (primary) hypertension; F17.210 Nicotine dependence, cigarettes, uncomplicated

== ENCOUNTER 2023-05-17 08:08 | Emergency (ER) | payer BC ==
--- OUTSIDE RECORDS SUMMARY | 2023-05-17 08:11 | XMS REPORT | Continuity of Care Document ---
:1980 Author Organization [facility] Address [address] [place] [address] [address] [place] [address] Care Team Providers Name Role Phone PCP, PATIENT DOES NOT HAVE A Primary Care Physician UnavailBryce Galvez MD Attending Clinician BRYCE COSBY Attending Clinician Unavailable BRYCE COSBY Admitting Clinician Unavailable Payers Payer Name Policy Type Policy Number Effective Date Expiration Date S [employer] [id number] 2015 NON-CONTRACT 00:00:00 GENERIC Problems Condition Condition Condition Status Onset Resolution Last Treating Co mments Source Name Details Category Date Date Treatment Clinician Date No known No known Disease Unive rs active active ity of problems problems [facility] Allergies, Adverse Reactions, Alerts Allergy Allergy Status Severity Reaction(s) Onset Inactive Treating Comm ents Source Name Type Date Date Clinician NO KNOWN Drug Active Univers ALLERGIE Class [facility] Social History Social Habit Start Date Stop Date Quantity Comments Source Exposure to 2022-05-17 2022-05-27 Not sure [facility] SARS-CoV-2 (event) 00:00:00 15:46:00 Medica l Branch Sex Assigned At [birth year] [facility] 00:00:00 00:00:00 Medical Branch Smoking Status Start Date Stop Date Source Tobacco smoking consumption Univ [facility] unknown Branch Medications Ordered Filled Start Stop Current Ordering Indication Dosage Frequency Signature Comments Components Source Medication Medication Date Date Medication? Clinician (SIG) Name Name NaCl 0.9% 2021- No 1000mL at 999 Uni vers (NS) bolus 05-27 mL/hr, ity of infusion 22:00: 22:56 1,000 mL, [place] as 1,000 mL 00 :00 IV Medical Infusion, Branch ONCE, 1 dose, On Brigette 05/27/22 at 1700, STAT doxycycline No 100mg 100 mg, U nivers hyclate 05-27 Oral, ity of (Vibramycin 21:15: 21:41 [place]CE, 1 [place] capsule 00 :00 dose, On Medica l 100 mg Brigette Branch 05/27/22 at 1615, GENESIS
Re ason for Anti-Infec tive: Documented Infection< br>Documen sara Infection Site: Skin / Soft Tissue
Duration of Therapy: 7 days ibuprofen No 800mg 800 mg, Uni vers (IBU) 05-27 Oral, ity of tablet 800 21:00: 21:41 ONCE, 1 [place] as mg 00 :00 dose, On Medical Brigette Branch 05/27/22 at 1600, GENESIS doxycycline Yes [id number] 100mg Take 1 Univers hyclate 100 05-27 capsule by it y of mg capsule 00:00: mouth in Jim[place] as 00 the Medical morning Branch and 1 capsule in the evening. Vital Signs Vital Name Observation Time Observation Value Comments Source Systolic blood 2022-05-27 22:00:00 140 mm[Hg] Univer sity [facility] Diastolic blood 2022-05-27 22:00:00 87 mm[Hg] [facility] Heart rate 2022-05-27 22:00:00 73 /min [facility] Respiratory rate 2022-05-27 22:00:00 16 /min [facility] Oxygen saturation in 2022-05-27 22:00:00 98 /min [facility] Arterial blood by [facility] Pulse oximetry [place] Body temperature 2022-05-27 20:43:00 38.22 Rena [facility] Body height 2022-05-27 20:43:00 175.3 cm [facility] Body weight 2022-05-27 20:43:00 107.956 kg [facility] BMI 2022-05-27 20:43:00 35.15 kg/m2 [facility] Procedures Procedure Date / Time Performing Clinician Source Performed XR CHEST 1 VW 2022-05-27 21:42:12 Bryce Cosby [facility] SEDIMENTATION RATE 2022-05-27 21:37:00 Bryce Cosby [facility] COVID-19 (ID NOW RAPID 2022-05-27 21:21:00 Bryce Cosby [facility] TESTING) [facility] TROPONIN I 2022-05-27 21:16:00 Bryce Cosby [facility] COMP. METABOLIC PANEL 2022-05-27 21:16:00 Bryce Cosby [facility] ([id number]) [facility] CBC WITH DIFF 2022-05-27 21:16:00 Bryce Cosby [facility] CONSENT/REFUSAL FOR 2022-05-27 20:27:41 Doctor Unassigned, No [facility] DIAGNOSIS AND TREATMENT Name [facility] NOTICE OF PRIVACY 2022-05-27 20:25:59 Doctor Unassigned, No [facility] PRACTICES Name [facility] Encounters Start End Encounter Admission Attending Care Care Encounter Source Date/Time Date/Time Type Type Clinicians Facility Department ID 2022-05-27 2022-05-27 Emergency Harjeet [facility] [id number] Univers 16:00:00 17:59:00 Bryce Courtney [place] [id number] [facility] [id number] [facility] [id number] [facility] 084 Branch 2022-05-27 2022-05-27 Emergency X HARJEET [facility] ERT [id number] Univers 16:00:00 17:59:00 BRYCE [facility] Results Test Description Test Time Test Comments Results Result Comments Source SEDIMENTATION RATE 2022-05-27 22:30:11 Test Item Value Reference Range Interpretation Comme nts ESR (test code = 1856201654) See_Comment [Automated message] The system which generated this result transmitted ref erence range: 0 - 10 mm/HR. The r eference range was not used to int erpret this result as normal/abnor mal. Lab Interpretation (test code = Normal 02669-4) [facility] WITH [id number] 22:29:30 Test Item Value Reference Range Interpretation Comments WBC (test code = See_Comment [Automated 6690-2) message] The sy stem which generated this result transmitted reference range : 4.20 - 10.70 10*3/?L. The reference range was not used to interpret this result as normal/abnormal . RBC (test code = See_Comment [Automated 789-8) message] The sy stem which generated this result transmitted reference range : 4.26 - 5.52 10*6/?L. The reference range was not used to interpret this result as normal/abnormal . HGB (test code = 16.7 g/dL 12.2-16.4 H 718-7) HCT (test code = 47.9 % 38.4-49.3 4544-3) MCV (test code = 87.2 fL 81.7-95.6 787-2) MCH (test code = 30.4 pg 26.1-32.7 785-6) MCHC (test code = 34.9 g/dL 31.2-35 786-4) RDW-SD (test code = 41.5 fL 38.5-51.6 45788-5) RDW-CV (test code = 12.8 % 12.1-15.4 788-0) PLT (test code = See_Comment L [Automated 777-3) message] The sy stem which generated this result transmitted reference range : 150 - 328 10*3/ ?L. The reference r shelia was not used to interpret this result as normal/abnormal . MPV (test code = 13.6 fL 9.8-13 H 59499-8) IPF % (test code = 12.7 % 1.2-10.7 H Platelet count [id number]) measured by fluorescence method. NRBC/100 WBC (test See_Comment [Automat ed code = 2118243544) message] The system which generated this result transmitted reference range : 0.0 - 10.0 /100 WBCs. The refer ence range was not u sed to interpret th is result as normal/abnormal . NRBC x10^3 (test code See_Comment [Auto mated = 5530167676) message] The s ystem which generated this result transmitted reference range : 10*3/?L. The reference range was not used to interpret this result as normal/abnormal . GRAN MAT (NEUT) % 64.9 % (test code = 770-8) IMM GRAN % (test code 0.60 % = 6631373567) LYMPH % (test code = 20.7 % 736-9) MONO % (test code = 13.3 % 5905-5) EOS % (test code = 0.0 % 713-8) BASO % (test code = 0.5 % 706-2) GRAN MAT x10^3(ANC) 4.24 10*3/uL 1.99-6.95 (test code = 1843915007) IMM GRAN x10^3 (test 0.04 10*3/uL 0-0.06 code = 6508514008) LYMPH x10^3 (test code 1.35 10*3/uL 1.09-3.23 = 731-0) MONO x10^3 (test code 0.87 10*3/uL 0.36-1.02 = 742-7) EOS x10^3 (test code = 0.06-0.53 L 711-2) BASO x10^3 (test code 0.03 10*3/uL 0.01-0.09 = 704-7) PLT ESTIMATE (test Decreased Normal A code = 9317-9) Lab Interpretation Abnormal (test code = 50000-7) [facility] [id number] 22:12:45 Test Item Value Reference Interpretation Comments Range TROPONIN I (test 0.005 ng/mL See_Comment [Automated code = 7866078711) message] The system which generated this result transmitted reference range : <=0.034. The reference range was not used to interpret this result as normal/abnormal . KINGSLEY (test code = Reference (Normal) KINGSLEY) Range (defined by the 99th percentile reference limit): <= 0.034 ng/mL Note: Cardiac troponin begins to rise 3-4 hours after the onset of ischemia. Repeat in 4-6 hours if the sample was drawn within 3-4 hours of the onset of the symptom and found normal. Diagnosis of myocardial injury is made with acute changes in cTn concentrations with at least one serial sample above the 99th percentile upper reference limit (URL), taken together with the patient's clinical presentation. Biotin has been reported to cause a negative bias, interpret results relative to patient's use of biotin. Lab Interpretation Normal (test code = 01098-9) [facility]. METABOLIC PANEL (44830)2022-05-27 22:02:01 Test Item Value Reference Range Interpretation Comments NA (test code = 136 mmol/L 135-145 3528980613) K (test code = 3.4 mmol/L 3.5-5 L 1742134060) CL (test code = 104 mmol/L 98-108 0214984339) CO2 TOTAL (test code = 24 mmol/L 23-31 2541873170) AGAP (test code = 2-16 6385018107) BUN (test code = 8 mg/dL 7-23 6095686864) GLUCOSE (test code = 107 mg/dL 70-110 6886116721) CREATININE (test code = 0.94 mg/dL 0.6-1.25 6392842052) TOTAL BILI (test code = 0.7 mg/dL 0.1-1.6 3942914705) CALCIUM (test code = 8.8 mg/dL 8.6-10.6 2738711756) T PROTEIN (test code = 6.8 g/dL 6.3-8.2 3398489673) ALBUMIN (test code = 4.3 g/dL 3.5-5 0158152288) ALK PHOS (test code = 118 U/L 34-122 6518422367) ALTv (test code = 54 U/L 5-50 H 1742-6) AST(SGOT) (test code = 60 U/L 13-40 H 6963063797) eGFR (test code = mL/min/1.73m2 0151919114) KINGSLEY (test code = KINGSLEY) Association of Glomerular Filtration Rate (GFR) and Staging of Kidney Disease* + --+ --+ ------+| GFR (mL/min/1.73 m2) ?| With Kidney Damage ?| ?Without Kidney Damage+ --------+ --------+ +| ?>90 ?| ?Stage one ?| ? Normal ?+ ---+ ---+ -------+| ?60-89 ?| ?Stage two ?| ? Decreased GFR ? + --+ --+ ------+| ?30-59 ?| ?Stage three ?| ? Stage three ? + --+ --+ ------+| ?15-29 ?| ?Stage four ? | ? Stage four ?+ ---+ ---+ -------+| ?<15 (or dialysis) ? ?| ?Stage five ? | ? Stage five ?+ ---+ ---+ -------+ *Each stage assumes the associated GFR level has been in effect for at least three months. ?Stages 1 to 5, with or without kidney disease, indicate chronic kidney disease. Notes: Determination of stages one and two (with eGFR >59mL/min/1.73 m2) requires estimation of kidney damage for at least three months as defined by structural or functional abnormalities of the kidney, manifested by either:Pathological abnormalities or Markers of kidney damage (including abnormalities in the composition of the blood or urine or abnormalities in imaging tests). Lab Interpretation Abnormal (test code = 48818-7) [facility]"
--- NOTE | 2023-05-17 08:43 | ER ---
Nurse's Notes [facility] Name: Adonis Mcnally Jr Age: 43 yrs Sex: Male : 1980 Arrival Date: 05/17/2023 Time: 08:08 Bed 5 Private MD: Diagnosis: Folliculitis Presentation: 05/17 08:25 Chief complaint: Patient states: TRUNCAL CIRCUMFRENTIAL RASH x2 WK. Coronavirus screen: bp At this time, the client does not indicate any symptoms associated with coronavirus-19. Ebola Screen: No symptoms or risks identified at this time. Initial Sepsis Screen: Does the patient meet any 2 criteria? No. Patient's initial sepsis screen is negative. Does the patient have a suspected source of infection? No. Patient's initial sepsis screen is negative. Risk Assessment: Do you want to hurt yourself or someone else? Patient reports no desire to harm self or others. Onset of symptoms is unknown. 08:25 Method Of Arrival: Ambulatory bp 08:25 Acuity: JU 4 bp Triage Assessment: 08:26 General: Appears in no apparent distress. Behavior is calm, cooperative, appropriate bp for age. Pain: Denies pain. EENT: No deficits noted. Neuro: No deficits noted. Cardiovascular: No deficits noted. Respiratory: No deficits noted. GI: No signs and/or symptoms were reported involving the gastrointestinal system. : No signs and/or symptoms were reported regarding the genitourinary system. Derm: Rash noted that is red. Musculoskeletal: No deficits noted. Historical: - Allergies: 08:26 No Known Allergies; bp - PMHx: 08:26 "heart problems"; Hypertensive disorder; bp - Immunization history:: Adult Immunizations up to date. - Social history:: Smoking status: Patient denies any tobacco usage or history of. - Family history:: not pertinent. - Hospitalizations: : No recent hospitalization is reported. Screenin:[address] [facility] ED Fall Risk Assessment (Adult) History of falling in the last 3 months, bp including since admission No falls in past 3 months (0 pts). Abuse screen: Denies threats or abuse. Denies injuries from another. Nutritional screening: No deficits noted. Tuberculosis screening: No symptoms or risk factors identified. Assessment: 08:26 General: Appears uncomfortable, Behavior is calm, cooperative, appropriate for age. me1 General: Reports Red, raised rash on chest and upper/mid back. States it does itch some but he can distract himself and refrain from scratching. Denies changing to any new soaps, etc. 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 General: Denies fever, feeling ill, fatigue, chills. Pain: Denies pain. Neuro: Level of Consciousness is awake, alert, obeys commands, Oriented to person, place, time, situation, Appropriate for age. Cardiovascular: Capillary refill < 3 seconds Patient's skin is warm and dry. Respiratory: Respiratory effort is even, unlabored, Respiratory pattern is regular, symmetrical. Derm: Rash noted that is red, raised, on back and chest. 08:27 General: SEE TRIAGE NOTE. bp Vital Signs: 08:25 BP 136 / 89; Pulse 75; Resp 16; Temp 98; Pulse Ox 97% ; Weight 111.13 kg; Height 5 ft. bp 7 in. ; 08:26 BP 136 / 89; Pulse 64; Resp 17; Pulse Ox 97% on R/A; me1 08:25 Body Mass Index 38.37 (111.13 kg, 170.18 cm) bp ED Course: 08:11 Patient arrived in ED. mr 08:15 Segundo Oneal MD is Attending Physician. rn 08:18 Romina Funes RN is Primary Nurse. 08:26 Triage completed. bp 08:26 Provided Education on: POC, verbalized understanding. . me1 08:26 No provider procedures requiring assistance completed. Patient did not have IV access me1 during this emergency room visit. 08:27 Arm band placed on. bp 08:27 Patient has correct armband on for positive identification. Bed in low position. Call bp light in reach. Side rails up X2. Administered Medications: No medications were administered Medication: 08:26 VIS not applicable for this client. me1 Outcome: 08:31 Discharged to home ambulatory. me1 08:31 Condition: stable 08:31 Discharge instructions given to patient, Instructed on discharge instructions, follow up and referral plans. medication usage, Demonstrated understanding of instructions, follow-up care, medications. 08:43 Discharge ordered by . rn 08:47 Patient left the ED. me1 Signatures: Jennifer Haynes mr Segundo Oneal MD MD rn Hall, Patricia, RN RN ph Peltier, Brian, RN RN Jennifer Hernandez, RN RN me1
--- NOTE | 2023-05-17 08:44 | EDPHYS ---
Physician Documentation [facility] Name: Adonis Mcnally Jr Age: 43 yrs Sex: Male : 1980 Arrival Date: 05/17/2023 Time: 08:08 Bed 5 Private MD: ED Physician Segundo Oneal HPI: 05/17 08:38 This 43 yrs old Male presents to ER via Ambulatory with complaints of Rash. rn 08:38 The patient's rash thought to be caused by an unknown cause. The rash is located on the rn back and chest. Onset: The symptoms/episode began/occurred yesterday. Associated signs and symptoms: Pertinent positives: itching, Pertinent negatives: fever. Severity of symptoms: At their worst the symptoms were mild in the emergency department the symptoms are unchanged. The patient has not experienced similar symptoms in the past. The patient has not recently seen a physician. Pt reports rash to back and chest. No fever. No sob. Does not feel ill. + itches mildly. . Historical: - Allergies: 08:26 No Known Allergies; bp - PMHx: 08:26 "heart problems"; Hypertensive disorder; bp - Immunization history:: Adult Immunizations up to date. - Social history:: Smoking status: Patient denies any tobacco usage or history of. - Family history:: not pertinent. - Hospitalizations: : No recent hospitalization is reported. ROS: 08:38 Constitutional: Negative for fever, chills, and weight loss, Cardiovascular: Negative rn for chest pain, palpitations, and edema, Respiratory: Negative for shortness of breath, cough, wheezing, and pleuritic chest pain, Abdomen/GI: Negative for abdominal pain, nausea, vomiting, diarrhea, and constipation, MS/Extremity: Negative for injury and deformity, Skin: + rash Neuro: Negative for headache, weakness, numbness, tingling, and seizure. Exam: 08:38 Constitutional: This is a well developed, well nourished patient who is awake, alert, rn and in no acute distress. Cardiovascular: Regular rate and rhythm. No pulse deficits. Respiratory: No increased work of breathing, no retractions or nasal flaring. Abdomen/GI: Soft, non-tender Skin: Warm, dry, + erythematous papular/pustular rash over back and anterior torso on hair-bearing surface. Vital Signs: 08:25 BP 136 / 89; Pulse 75; Resp 16; Temp 98; Pulse Ox 97% ; Weight 111.13 kg; Height 5 ft. bp 7 in. ; 08:26 BP 136 / 89; Pulse 64; Resp 17; Pulse Ox 97% on R/A; me1 08:25 Body Mass Index 38.37 (111.13 kg, 170.18 cm) bp MDM: 08:15 Patient medically screened. rn 08:38 Differential diagnosis: allergic reaction, folliculitis. Data reviewed: vital signs, rn nurses notes, and as a result, I will discharge patient. Counseling: I had a detailed discussion with the patient and/or guardian regarding: the historical points, exam findings, and any diagnostic results supporting the discharge/admit diagnosis, the need for outpatient follow up, to return to the emergency department if symptoms worsen or persist or if there are any questions or concerns that arise at home. Special discussion: I discussed with the patient/guardian in detail that at this point there is no indication for admission to the hospital. It is understood, however, that if the symptoms persist or worsen the patient needs to return immediately for re-evaluation. 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
[2023-05-17 09:04] VITALS: BP 136/89; TEMP 98; O2SAT 97
== END 2023-05-17 08:47 | disposition home or self-care (01) ==
LOC: ER 08:08
DX: L73.9 Follicular disorder, unspecified (principal)
CPT/HCPCS: 99282